=== PATIENT | male | born 1945 | race Caucasian/White ===

== ENCOUNTER 2018-06-14 06:52 | Day surgery (SDC) | payer OTHER, MEDICARE ==
[~2018-06-14] VITALS: Ht 175.3 cm; Wt 70.8 kg
[2018-06-14] MEDS ORDERED: PROPOFOL 200MG/ 20ML VIAL (DIPRIVAN) IV ONE (06:53)
[2018-06-14] MEDS ORDERED: CIPRO HC 10 ML OTIC SUSPENSION OT ONE (06:53)
[2018-06-14] MEDS ORDERED: OXYMETAZOLINE HCL 0.05% NASAL SPRAY NS ONE (06:53)
[2018-06-14] MEDS ORDERED: NS IRRIG SOLN 1000 ML IR ONE (06:53)
[2018-06-14] MEDS ORDERED: SEVOFLURANE 15 MIN GAS INH ONE (06:53)
[2018-06-14] MEDS ORDERED: CIPROFLOXACIN HCL/DEXAMET 7.5 ML OTIC DROPS.SUSP OT ONE (08:00)
[2018-06-14] MEDS ORDERED: fentaNYL CITRATE/PF 100 MCG/2 ML AMP IVP PRN (09:00)
[2018-06-14] MEDS ORDERED: ONDANSETRON HCL 4 MG/2 ML VIAL IVP PRN (09:00)
[2018-06-14 12:33] VITALS: BP_SYST 149
== END 2018-06-14 10:35 | disposition still patient (30) ==
LOC: SDS 06:52 → SMU 06:53 → SDS 10:35
PROVIDERS: ATTEND Otolaryngology
DX: H65.02 Acute serous otitis media, left ear (principal); H90.3 Sensorineural hearing loss, bilateral; H68.101 Unspecified obstruction of Eustachian tube, right ear; R35.1 Nocturia; B27.00 Gammaherpesviral mononucleosis without complication
CPT/HCPCS: 69436; J2704; J7120; L8699